=== PATIENT | female | born 1960 | race Caucasian/White ===

== ENCOUNTER 2019-02-11 06:20 | Inpatient (IN) | payer MEDICAID | END 2019-02-13 13:09 | disposition home or self-care (01) | LOC: CENTRAL 02-13 09:08 → ER 06:20 → TELE 11:01 → TELE-CENTR 20:02 | PROC: 0FT44ZZ Resection of Gallbladder, Percutaneous Endoscopic Approach (ICD-10-PCS; principal; 2019-02-12 12:11) | DX: K80.00 Calculus of gallbladder with acute cholecystitis without obstruction (principal); I72.2 Aneurysm of renal artery; I10 Essential (primary) hypertension; E87.6 Hypokalemia ==